=== PATIENT | female | born 1960 | race Caucasian/White ===

== ENCOUNTER → 2017-11-12 10:53 | Outpatient (CLI) | payer BC, SELFPAY ==
--- NOTE | 2017-11-12 | IMM_PTH ---
PATIENT: CARRIE GARVEY LOC: [facility] U#:[id number] AGE/SX: 64/F ROOM: RE11/12/[address]: Dr. Sidra Higgins MD : 1960 BED: DIS: SPEC #: [id number] RECD: 11/13/17 10:24 STATUS: CORNELIO REBahman #: [id number] TRAE: 11/12/17 00:[address]: Sidra Higgins DEPT: IMMUNOHISTOCHEMISTRY RECD BY: Nayla Vega ENTERED: 11/13/17 10:25 SP TYPE: IMMUNO OTHR DR: No Primary Care Phys Tissues: Right breast, NOS Procedures: CALPONIN-1 (add) CK8 (add) E-CAD (add) HER2 TRACEY (add) MI (add) P40 (add) ER (initial) PHYSICIAN & INSTITUTION [place] [id number] SPECIMEN INFORMATION: Tissue Source: Right breast tissue Clinical Info: Microcalcifications UOQ Specimen Number: [id number] #2 CPT code: 07550, 97958 x3, 02042 x3 METHODOLOGY: Deparaffinized sections of prefer/formalin-fixed tissue or PAP/DQ stained slides are incubated with monoclonal/polyclonal antibodies/oligonucleotide probes. Localization is made via biotin free immunoperoxidase method. Appropriate controls are performed and reacted as expected. Results on target cell population are indicated in the following table: RESULTS: ANTIBODY / CLONE RESULT Block 2 E-Cad (ECH-6) positive CK8 (41bplaD21) positive P40 (BC28) positive Calponin-1 (NQ215B) positive MORPHOMETRIC ANALYSIS ER (clone 6F11) 0% MI (clone 16/1E2) 0% Her-2Neu (clone CB11) 3+ (positive) The prognostic test for HER2 is performed on formalin-fixed paraffin embedded tissue. A 3+ (positive) staining pattern is defined as intense, homogeneous, complete, circumferential membranous staining in >10% of contiguous tumor cells. A similar weak (2+) staining pattern is interpreted as equivocal. CHEPE follow-up testing is recommended for all equivocal cases. Positivity/negativity for ER/MI is reported if > or < 1% of the tumor cells are immuno- reactive, respectively. The ASCO/CAP criteria is used for scoring. Reference: Journal of Clinical Oncology, 2013; 31:8518-4227 & 2010; 16:8485-2656. Duration of fixation: 8 Hrs; Sample Adequate: Yes. These assays have not been validated on decalcified tissues. Results should be interpreted with caution given the likelihood of false negativity on decalcified specimens. These tests were developed and their performance characteristics determined by [facility]. They may not have been cleared or approved by the U.S. Food and Drug Administration. The FDA has determined that such clearance or approval is not necessary. INTERPRETATION: Right breast, stereotactic needle core biopsy: Ductal carcinoma in situ, nuclear grade 3. SJ:ammy 11/13/17
--- NOTE | 2017-11-12 11:30 | BRBX_PTH ---
PATIENT: ACRRIE GARVEY LOC: [facility] U#:[id number] AGE/SX: 64/F ROOM: RE11/12/[address]: Dr. Sidra Higgins MD : 1960 BED: DIS: SPEC #: [id number] RECD: 11/12/17 12:27 STATUS: CORNELIO CEDENO #: [id number] TRAE: 11/12/17 11:[address]: Sidra Higgins DEPT: SURGICAL PATHOLOGY RECD BY: Nayla Vega ENTERED: 11/12/17 15:02 SP TYPE: BREAST BX OT DR: No Primary Care Phys Tissues: Right breast, NOS Procedures: Surgery Specimen Level IV HEADER OPERATION: Right breast stereotactic needle core biopsy PRE-OP DIAGNOSIS: Microcalcifications at UOQ TISSUE SUBMITTED: Right breast tissue ISCHEMIC TIME: 1 minute FIXATION TIME: 8 hours MICROSCOPIC DIAGNOSIS Right breast, microcalcifications at upper outer quadrant, stereotactic needle core biopsy: Ductal carcinoma in situ with the following characteristics: Pattern ? comedo and cribriform Nuclear Grade - 3 Necrosis ? present, central (expansive comedo necrosis). Calcifications ? not identified. See comment. KEVIN:ammy 11/13/17 COMMENT Immunohistochemistry ([id number]) supports the above diagnosis. ER/IA/Jgq9hec studies are being performed on sections of tumor and the results from this study will be reported separately ([id number]). MICROSCOPIC DESCRIPTION Slides are reviewed. GROSS DESCRIPTION Received in fixative is one container labeled with the patient's name and designated right breast. The specimen consists of multiple elongated fragments of posey-yellow fibroadipose tissue that in aggregate measure 7.5 x 3 x 0.3 cm. The entire specimen is submitted in three cassettes. / KEVIN:ammy 11/12/17 TC:0 CPT: 06002
--- NOTE | 2017-11-12 16:52 | PCM.OPRPT ---
Report of Operation Date of Procedure: 11/12/17 Pre-Operative Diagnosis: abnormal calcifications of right breast mammograms Post-Operative Diagnosis: same Surgery/Procedure Performed:: right stereotactic breast biopsy Description of Surgical Findings:: multiple areas of calcifications in central upper breast Type of Anesthesia:: Local - 1% xylocaine Specimen's removed: right breast tissue Estimated Blood Loss (mL): < 1 ml Fluids Replaced: none Description of Procedure: After informed consent was given, the patient was brought into the breast biopsy suite. Appropriate time out protocol was followed. She was then placed in the prone position on the stereotactic biopsy table. The patients right breast was then placed in the opening at the head of the table. A windlace machine operator compression mammogram was then obtained in the CC view. The suspicious radiological lesion was then identified. Stereo pictures of the lesion were then taken for XYZ coordinates. The Mammotome biopsy stylus was then positioned where it would be entering into the patients breast. The skin at this site was then cleansed with a surgical skin preparation. The skin and subcutaneous tissues at this site were then infiltrated with 1% xylocaine. A small skin incision was made with an 11 blade scalpel. The biopsy stylus was then positioned into the patients breast at the proper coordinates of depth. Using the Mammotome vacuum-assist device, several core samples of breast tissue were obtained. A specimen mammogram was the obtained and revealed that the calcifications were within the specimen. A hemostatic marker clip was then placed into the biopsy cavity and a windlace machine operator film revealed that it was properly deployed. The patient was then placed in the supine position and pressure was applied to the breast until no active bleeding was noted. Steristrips were applied to reapproximate the skin. A unilateral mammogram in the CC and MLO view were then taken which revealed that the marker clip was in the same area as the previous suspicious lesion. The patient tolerated the procedure well and was discharged from the breast biopsy suite in good condition. - Complications none noted
== END ==
LOC: BIRAD 10:56
PROVIDERS: Visit Provider Surgery
DX: C50.111 Malignant neoplasm of central portion of right female breast (principal); K21.0 Gastro-esophageal reflux disease with esophagitis; E66.9 Obesity, unspecified; F17.210 Nicotine dependence, cigarettes, uncomplicated; Z79.82 Long term (current) use of aspirin; Z79.899 Other long term (current) drug therapy
CPT/HCPCS: 19081; 88305; 88341; 88342; J7050; A4648

== ENCOUNTER 2017-11-28 09:41 | Day surgery (SDC) | payer BC, SELFPAY ==
--- NOTE | 2017-11-28 | BRBX_PTH ---
PATIENT: CARRIE GARVEY [place] [facility] [place][id number] AGE/SX: 57/F ROOM: RE11/28/[address]: Dr. Sidra Higgins MD : 1960 BED: DIS: 11/28/2017 SPEC #: [id number] RECD: 11/28/17 14:08 STATUS: CORNELIO PAO #: [id number] TRAE: 11/28/17 00:[address]: Sidra Higgins DEPT: SURGICAL PATHOLOGY RECD BY: Nayla Vega ENTERED: 11/28/17 14:09 SP TYPE: BREAST BX OTHR DR: Dr. Eric Coughlin DO Tissues: A - Right breast, NOS B - CICATRIX/SCAR Procedures: Surgery Specimen Level IV Surgery Specimen Level V HEADER OPERATION: Right breast ductal carcinoma in situ PRE-OP DIAGNOSIS: Right breast ductal carcinoma in situ TISSUE SUBMITTED: A - Right breast mass sent to mammography and then to lab for FS at 1244, short suture breaux medial border, two short sutures antonio superior border, two long sutures antonio inferior border, B - Biopsy scar right breast MICROSCOPIC DIAGNOSIS A. Right breast, lumpectomy: Ductal carcinoma in situ. See cancer checklist below. B. Right breast, biopsy scar: Consistent with cicatrix. Focal foreign body giant cell reaction to polarizable material. No evidence of malignancy. AM:ammy 12/03/17 COMMENT A. DUCTAL CARCINOMA IN SITU SUMMARY: Specimen - partial breast Procedure - excision with wire-guided localization. Lymph node sampling - no lymph nodes present. Specimen integrity - single intact specimen. Specimen size - 7 x 6.5 x 3 cm Specimen laterality - right breast Size (extent) of DCIS - 7 x 6 x 3 mm Number of blocks with DCIS - 9 Number of blocks examined - 12 Extensive intraductal component - present Histologic type - ductal carcinoma in situ Architectural patterns - papillary and comedo Nuclear grade - Grade 3 (high grade) Necrosis - present Margins - free of carcinoma Distance from closest margins (anterior, posterior and inferior margins) - <1 mm Treatment effect - unknown Lymph nodes - not present Microcalcifications - present in neoplastic tissue. Additional pathologic findings - changes of previous biopsy. Pathologic Staging: pTis(DCIS) Nx Mx The above summary is in compliance with [employer] [place] [employer] (CAP) Cancer Protocols Checklist and [place] [employer] Committee on Cancer (AJCC), Staging Manual, 8th Ed. Reference is made to the patient's right breast, stereotactic needle core biopsy ([id number]) in which grade 3 ductal carcinoma was identified. Hormonal marker study ([id number]) shows ER at 0%, MO at 0% and 3+ positivity for Her-2 by immunohistochemistry was identified. Case has been reviewed in consultation with Dr. Casiano who concurs with the above diagnosis. IDC:SJ MICROSCOPIC DESCRIPTION Slides are reviewed. GROSS DESCRIPTION A - Received fresh for intraoperative consultation labeled with the patient's name is a specimen designated right breast mass. The specimen consists of a piece of fibroadipose tissue with needle localization measuring 7 x 6.5 x 3 cm. The specimen is oriented as follows: short - medial border, two short - superior border, two long - inferior border. The specimen is inked as follows: anterior - yellow, posterior - black, superior - blue, inferior - green, medial - red and lateral - orange. Serial sections reveal a biopsy cavity which is 0.2 cm away from the closest posterior margin. Medical Assisting Instructor sections are submitted in 12 cassettes as follows: 1 - perpendicular medial, lateral and anterior margins, 2 - perpendicular superior and inferior margins, 3-6 - biopsy cavity with closest posterior margin, 7-12 - account representative sections adjacent to and away from the biopsy cavity. Sections will be submitted after additional fixation. / David 12/01/17 B - Received in fixative is one container labeled with the patient's name and designated biopsy scar right breast. The specimen consists of two pieces of posey soft tissue measuring in aggregate 0.6 x 0.5 x 0.2 cm. The entire specimen is submitted in one cassette. / KEVIN:ammy 11/28/17 TC:0 CPT: 68941, 34680
[2017-11-28 10:04] VITALS: BP 128/85; PULSE 81; RESP 16; TEMP 37.2; O2SAT 96; BMI 30.9
--- NOTE | 2017-11-28 10:16 | BI_ITS ---
SURGICAL BREAST SPECIMEN RADIOGRAPH CLINICAL: Document presence of microcalcifications and localizing wire in biopsy specimen. FINDINGS: Specimen shows presence of microcalcifications Pathology is pending and an addendum to the biopsy report will be performed after the final pathologic diagnosis is rendered. Electronically Signed: Dana Aguayo MD at 14:10 EDT Tel , Service support , BI/Breast Biopsy Specimen
[2017-11-28] MEDS: Bupiv/Epi 0.5% Mpf 30 ML Vial (12:15)
--- NOTE | 2017-11-28 13:19 | OP.PN_ITS ---
Immediate Post-Op Note Date of Procedure: 11/28/17 Primary Surgeon/Physician: Sidra Higgins team leader/research psychologist: YOUSIF ESCOBAR, medical student Pre-Operative Diagnosis: right breast ductal carcinoma in situ Post-Operative Diagnosis: same Surgery/Procedure Performed:: right breast lumpectomy via wire localization Description of Surgical Findings:: right breast tissue - upper outer quadrant Estimated Blood Loss: < 10 ml Specimen's removed: right breast tissue Type of Anesthesia:: General ASA Class: ASA2 Mod Systematic Disease - Admit VTE Documentation VTE Present on Admission: Yes VTE Mechan Device Prophylaxis: SCD's
--- NOTE | 2017-11-28 13:20 | OP.PCM_ITS ---
Report of Operation Date of Procedure: 11/28/17 Pre-Operative Diagnosis: right breast ductal carcinoma in situ Post-Operative Diagnosis: same Surgery/Procedure Performed:: right breast lumpectomy via wire localization Description of Surgical Findings:: right breast tissue - upper outer quadrant, specimen mammogram reviewed intraoperatively and marker clip in the specimen, intraop pathology reveals margins are clear parts department supervisor: NOT,DEFINED - Abelino Hensley, medical student Type of Anesthesia:: General Anesthesiologist: Lorena Mcleod Specimen's removed: right breast tissue Estimated Blood Loss (mL): < 10 ml Fluids Replaced: 1000 ml RL Description of Procedure: After informed consent was given, the patient was brought into the Breast Stereotactic Radiology suite. Appropriate time out protocol was followed. She was then placed in the prone position on the [place] stereotactic table. The patient?s right breast was placed in the opening at the head of the table. A qa manager compression mammogram was then obtained in the CC view. The marker clip that was previously placed was identified. Stereo pictures of the lesion were then taken for XYZ coordinates. The Kopans needle was then positioned where it would be entering into the patient?s breast. The skin at this site was then cleansed with a surgical skin preparation. The skin and subcutaneous tissues at this site were then infiltrated with 1% xylocaine. The Kopans needle was then positioned into the patient?s breast at the proper coordinates of depth. A qa manager film was obtained which revealed the wire in proper position. The patient was then placed in the supine position and the wire was taped into place. A unilateral mammogram in the CC and MLO view were then taken for use in the OR. The patient tolerated this portion of the procedure well and was brought to the AC awaiting surgery in the OR. The patient was then brought to the Operating Room and placed on the operating table in the supine position. Appropriate time out protocol was followed. A wire had already been placed in the stereotactic biopsy room in the radiology department as described above. The right breast with the wire in placed was then prepped with a sterile surgical skin preparation and sterile surgical drape s were placed. The skin and subcutaneous tissues at the site of the breast lesion was then infiltrated with 1% xylocaine with epinephrine. A transverse curvilinear skin incision was then made with a 15 blade scalpel and carried down through to the subcutaneous tissues in the upper outer quadrant of the right breast. Hemostasis was controlled with electrocautery. The wire was then palpated out and brought into the wound from outside. The breast tissue surrounding the wire was then carefully palpated out and from the surrounding tissues using electrocautery. The breast tissue, once from the breast, was then forwarded to the radiology department, where a specimen mammogram revealed that the lesion was within the specimen. The breast tissue was then forwarded to pathology for analysis. Pathology review revealed that the closest margin was posterior 2 mm. The wound cavity was carefully examined. No further suspicious tissue was palpated or visualized. Hemostasis was carefully controlled with electrocautery. The subdermal tissues were then approximated with vicryl suture. The incision was then reapproximated close using running monocryl suture. Cavilon and steristrips were then placed to reinforce the skin closure. A sterile dressing was then applied. The patient was then brought to the Recovery Room in stable condition. - Complications none noted - Admit VTE Documentation VTE Present on Admission: Yes VTE Mechan Device Prophylaxis: SCD's
--- NOTE | 2017-11-28 13:22 | PCM.DC.BS ---
Discharge Diet: No Restrictions Discharge Activity: Return to Normal Activity, May not drive while taking narcotic pain medications. Call your doctor if your incision/area has: Continuous Slow Oozing, Foul Smelling Discharge Call your doctor if you observe: Fever of 101 or Higher Additional Dressing/Incision Instructions:: Leave dressings in place. May get wet in shower. Do not soak - no tub baths/swimming Allergies/Adverse Reactions: Allergies Penicillins Allergy (Verified 11/25/17 10:37) Rash chlordiazepoxide [From Librax (with clidinium)] Adverse Reaction (Verified 11/25/17 10:37) Other CONSTIPATION clidinium bromide [From Librax (with clidinium)] Adverse Reaction (Verified 11/25/17 10:37) Other CONSTIPATION Medications to take at Discharge Aspirin [Aspirin EC] 81 mg PO DAILY 11/25/17 Hydrocodone/Acetaminophen [[place] 5-325 Tablet] 1 ea PO Q8H PRN PRN 3 Days #10 tab 11/28/17 The following prescriptions were given: Hydrocodone/Acetaminophen [[place] 5-325 Tablet] 1 ea PO Q8H PRN PRN 3 Days #10 tab PRN Reason: Pain Primary Care Physician: Eric Coughlin DO [Primary Care Provider] - Please Follow Up With: Sidra Higgins MD - call When: to be seen next week, please call for date and time, thank you
[2017-11-28 13:28] VITALS: BP 126/86; BP 128/85; PULSE 90; RESP 16; TEMP 36.9; O2SAT 92
[2017-11-28 13:44] VITALS: BP 126/87; BP 128/85; PULSE 86; RESP 16; O2SAT 91
[2017-11-28 14:00] VITALS: BP 117/82; BP 128/85; PULSE 80; RESP 16; TEMP 36.7; O2SAT 93
[2017-11-28 14:37] VITALS: BP 117/73; BP 128/85; PULSE 79; RESP 16; TEMP 36.6; O2SAT 93
== END 2017-11-28 14:44 | disposition home or self-care (01) ==
LOC: SDC 09:43 → AC 09:45
PROVIDERS: Family Provider Student in an Organized Health Care Education/Training Program; PCP Student in an Organized Health Care Education/Training Program; Referring Provider Surgery; Visit Provider Surgery
PROC: (CPT 19301; principal; 2017-11-28 11:30)
DX: D05.11 Intraductal carcinoma in situ of right breast (principal); K21.9 Gastro-esophageal reflux disease without esophagitis; K58.9 Irritable bowel syndrome, unspecified; J45.909 Unspecified asthma, uncomplicated; R32 Unspecified urinary incontinence; E66.9 Obesity, unspecified; Z68.30 Body mass index [BMI] 30.0-30.9, adult; F17.210 Nicotine dependence, cigarettes, uncomplicated; Z79.82 Long term (current) use of aspirin; Z78.0 Asymptomatic menopausal state; Z87.11 Personal history of peptic ulcer disease
CPT/HCPCS: 00400; 19301; 19281; 76098; 88304; 88305; 88307; J7120; J2405

== ENCOUNTER 2018-06-08 11:15 | Day surgery (SDC) | payer BC, SELFPAY ==
[2018-06-08] VITALS (8 sets, daily range): BP systolic 111–132; BP diastolic 72–88; PULSE 76–87; RESP 16; TEMP 36.2–36.7; O2SAT 93–100; BMI 34.2
--- NOTE | 2018-06-08 | COLBX_PTH ---
PATIENT: CARRIE GARVEY LOC: [facility] U#:[id number] AGE/SX: 57/F ROOM: RE06/08/[address]: Dr. Sidra Higgins MD : 1960 BED: DIS: 06/08/2018 SPEC #: [id number] RECD: 06/08/18 15:41 STATUS: CORNELIO RE #: [id number] TRAE: 06/08/18 00:[address]: Sidra Higgins DEPT: SURGICAL PATHOLOGY RECD BY: Bradly Mclean ENTERED: 06/09/18 14:01 SP TYPE: COLON BX OTHR DR: Dr. Eric Coughlin DO Tissues: A - Duodenum, NOS B - Gastric mucous membrane C - Gastric mucous membrane Procedures: Special Stain Group II Surgery Specimen Level IV Alcian Blue/PAS (control) HEADER OPERATION[place] [place] DIAGNOSIS: TISSUE SUBMITTED: A - Second portion of duodenum biopsy, B - Antrum biopsy for histo and H. pylori, C - GE junction biopsy MICROSCOPIC DIAGNOSIS A. Second portion of duodenum, biopsy: Fragments of small intestinal mucosa, no pathologic diagnosis. B. Antrum, biopsy: Mild gastritis. See microscopic description and comment. C. GE junction, biopsy: Fragments of gastroesophageal mucosa with chronic inflammation. Intestinal metaplasia (goblet cell metaplasia) is not identified. See comment. SJ:ammy 06/10/18 COMMENT B. The results of immunohistochemistry for Helicobacter pylori will be reported separately ([id number]). C. Alcian blue/PAS stain with matched control is used in the evaluation of the specimen. MICROSCOPIC DESCRIPTION Slides are reviewed. B. The specimen shows fragments of gastric mucosa with chronic inflammatory cell infiltrates in the lamina propria consisting of lymphocytes and plasma cells, consistent with mild chronic gastritis. GROSS DESCRIPTION A - Received in fixative is one container labeled with the patient's name and designated second portion of duodenum. The specimen consists of multiple irregular fragments of light posey soft tissue that in aggregate measure 1 x 0.2 x 0.1 cm. The specimen is totally submitted in one cassette. B - Received in fixative is one container labeled with the patient's name and designated antrum biopsy. The specimen consists of two irregular fragments of light posey soft tissue that in aggregate measure 0.5 x 0.3 x 0.1 cm. The specimen is totally submitted in one cassette. C - Received in fixative is one container labeled with the patient's name and designated GE junction biopsy. The specimen consists of multiple two irregular fragments of light posey soft tissue that in aggregate measure 0.3 x 0.2 x 0.1 cm. The specimen is totally submitted in one cassette. / SJ:rg 06/09/18 TC:5 CPT: 53014 x3, 01841
--- NOTE | 2018-06-08 12:45 | IMM_PTH ---
PATIENT: CARRIE GARVEY LOC: [facility] U#:[id number] AGE/SX: 57/F ROOM: RE06/08/[address]: Dr. Sidra Higgins MD : 1960 BED: DIS: 06/08/2018 SPEC #: [id number] RECD: 06/09/18 15:12 STATUS: CORNELIO REQ #: [id number] TRAE: 06/08/18 12:[address]: Sidra Higgins DEPT: IMMUNOHISTOCHEMISTRY RECD BY: Nayla Vega ENTERED: 06/09/18 15:13 SP TYPE: IMMUNO OTHR DR: Dr. Eric Coughlin, Tissues: B - Stomach, NOS Procedures: H Pylori (initial) PHYSICIAN & INSTITUTION [place] [id number] SPECIMEN INFORMATION: Tissue Source: B - Antrum biopsy Clinical Info: Screening Specimen Number: [id number] CPT code: 78281 METHODOLOGY: Deparaffinized sections of prefer/formalin-fixed tissue or PAP/DQ stained slides are incubated with monoclonal/polyclonal antibodies/oligonucleotide probes. Localization is made via biotin free immunoperoxidase method. Appropriate controls are performed and reacted as expected. Results on target cell population are indicated in the following table: RESULTS: ANTIBODY / CLONE RESULT Block B H Pylori (polyclonal) negative These tests were developed and their performance characteristics determined by [facility]. They may not have been cleared or approved by the U.S. Food and Drug Administration. The FDA has determined that such clearance or approval is not necessary. INTERPRETATION: B. Antrum, biopsy: Negative for Helicobacter pylori organisms. SJ:ammy 06/10/18
--- NOTE | 2018-06-08 13:56 | HP.PCM_ITS ---
History and Physical Date of Admission: 06/08/18 HISTORY AND PHYSICAL ? Christel Madden 1960 ? ? REFERRING PHYSICIAN: Mckenzie López MD ? CHIEF COMPLAINT: discuss EGD ? HPI: The patient is a 57 year old female presents for consideration of upper endoscopy. 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 Also findings of gastritis for which H pylori was negative. Denies hematemesis. Denies swallowing problems Mother had colon cancer in her 50s and at age 60, due for colonosocpy in 2020 ? ? PAST MEDICAL HISTORY ? Acute peptic ulcer, unspecified site, without mention of hemorrhage and perforation ? ? Diaphragmatic hernia without mention of obstruction or gangrene ? ? Hiatal hernia ? Esophageal reflux ? ? Gastroesophageal reflux ? Esophagitis ? ? Irregular menses ? ? Non morbid obesity 09/05/2015 ? Ovarian cyst 04/19/2009 ? Tobacco abuse ? ? 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 Urinary incontinence ? ? PAST SURGICAL HISTORY ? BREAST LUMPECTOMY HX Right 11/28/2017 ? COLONOSCOP W/ OR W/O [facility] SPEC ? 06/20/03 ? Colonoscopy ? COLONOSCOP W/ OR W/O [facility] SPEC ? 05/17/2009 ? Colonoscopy ? COLONOSCOP W/ OR W/O [facility] SPEC ? 12/20/11 ? normal colonoscopy - 5 year follow up ? COLONOSCOP W/ OR W/O [facility] SPEC ? 09/06/2015 ? Colonoscopy ? EGD W/O OR W/BRUSH/WASH ? 05/17/2009 ? EGD ? EGD W/O OR W/BRUSH/WASH ? 09/06/2015 ? [facility] ? 11/12/2017 ? TYP MEMBR REP W OR W/O PATCH ? 2005 ? Tympanoplasty ? ? Current Outpatient Medications: Aspirin 81 mg tab Take 1 tablet by mouth once daily. Take with food. ? ? ALLERGIES: Librax (With Clinidium) [Chlordiazepoxide-Clidinium]; Penicillins ? PERSONAL HISTORY: Social History Socioeconomic History Marital status: Spouse name: Jian Number of children: 4 Years of education: Not on file Highest education level: Not on file Social Needs Financial resource strain: Not on file Food insecurity - worry: Not on file Food insecurity - inability: Not on file Transportation needs - medical: Not on file Transportation needs - non-medical: Not on file Occupational History Occupation: LABOR Employer: [employer] Tobacco Use Smoking status: Current Every Day Smoker Packs/day: 1.50 Years: 35.00 Pack years: 52.5 Types: Cigarettes Smokeless tobacco: Never Used Substance and Sexual Activity Alcohol use: No Drug use: No Sexual activity: Yes Partners: Male control/protection: Vasectomy Other Topics Concerns: Not on file Social History Narrative Not on file ? FAMILY HISTORY ? Colon Cancer Mother ? ? Cancer Mother ? ? OVARIAN ? Cancer Father ? ? throat ? Hypertension Maternal Grandmother ? ? Diabetes Maternal Grandmother ? ? Hypertension Paternal Grandmother ? ? Colon Cancer Paternal Grandmother ? ? Breast Cancer Paternal Grandmother ? ? Heart Paternal Grandfather ? ? other (Fibroids) Daughter ? ? ? REVIEW OF SYSTEMS: ?General:???The patient denies fatigue, denies weight loss, denies weight gain, denies feeling hot, and NOTES feelings of cold. ?Eyes: ?The patient denies glaucoma, denies eye injury/surgery, wears glasses or contacts. ?Ear/Nose/Throat: ?The patient denies allergies, denies hayfever, denies ear infections, and denies bloody noses. ?Cardiovascular: ?The patient denies chest pain, denies heart disease, denies high blood pressure,denies cardiac stent, denies prior heart attack, denies irregular heart beat, denies high cholesterol, ?denies poor circulation, denies heart failure, other cardiac issues, NOTES claudication, denies cold feet, denies peripheral arterial stent. ?Respiratory: ?The patient denies tuberculosis, denies pneumonia, denies frequent cough, denies pulmonary embolism, denies shortness of breath, and denies coughing up blood. ?Gastrointestinal: mother of colon cancer at age 60 patient's last colonoscopy was 3-4 years ago?The patient denies difficulty swallowing, NOTES acid reflux, denies ulcers, denies vomiting, denies jaundice/hepatitis, denies gallbladder problems, denies black or tarry stools, denies hemorrhoids, denies bleeding from rectum, denies diverticulitis, denies constipation, denies diarrhea, denies loss of stool control, and denies hernias. ?Kidney/Bladder: ?The patient denies kidney stones, denies urine infections, and denies bloody urine. ?Skin: ?The patient denies a history of skin cancer, denies bleeding/changing moles, and denies a history of skin rash. ?Neurologic: ?The patient denies a history of epilepsy/convulsions, denies headaches, denies head/spinal injuries, and denies stroke/TIA. ?Psychiatric: ?The patient denies psychiatric medications, denies depression, and denies voices, denies substance abuse. ?Endocrine: ?The patient denies thyroid disorders, denies diabetes, and denies hormonal problems. ?Hematologic: ?The patient denies a history of bruising, denies bleeding, and denies anemia, denies blood clots. ?Infections: ?The patient denies a history of measles and mumps, denies rheumatic fever, and denies sexually transmitted diseases. ?Musculoskeletal: ?The patient denies back pain/injury, NOTES back problems, denies sciatica, denies knee/foot trouble, NOTES arthritis, or denies gout. ?Obstetrical: menarche onset at age 11/12, , first at age 15, denies breast feeding, BCP starting at age 17 for a few years then used IUD,?last menstrual period 10/08/2012 ? PHYSICAL EXAMINATION: General: The patient is 57 year old female, well nourished, well hydrated in no acute distress. The patient is oriented to time, place, and person. VITALS: Blood pressure 132/64, pulse 88, weight 88.9 kg (196 lb), last menstrual period 10/08/2012. Body mass index is 33.12 kg/m?. Head ? Normocephalic. EOM intact with sclera clear and no icterus noted. Mouth with mucus membranes moist. Neck - supple with no jugular venous distention noted. Trachea is midline. No carotid bruits noted. No thyroid enlargement or thyroid nodules detected. No masses noted. Chest/breast ? no asymmetry of breasts noted, no suspicious skin lesions noted well healed incisional scar of lateral aspect of right breast, no nipple d ischarge and both nipples everted, no suspicious lesions palpated, palpation of the breast tissue reveals no tenderness, pain is reproduced with pressure applied to thoracic wall - rib cage and pectoralis mscle Lungs ? clear to auscultation. Normal breath sounds. No rales/rhonchi/wheezing noted. No labored breathing noted, such as retractions. Heart ? normal S1 and S2 auscultated. No rubs/clicks/murmurs noted. Regular rate. Abdomen ? soft and benign. Normal bowel sounds. No abdominal bruits noted. No distention or tympany noted. Extremities ? no calf tenderness noted. No pitting edema noted. Skin ? normal skin integrity. Lymph ? no cervical adenopathy detected, no supraclavicular adenopathy detected, no axillary adenopathy detected Neurological ??gait normal, no focal deficits noted. Psych ? calm and appropriate ? IMPRESSION: history of squamous papilloma of esophagus ? PLAN: I have discussed the above with the patient. I have offered evaluation with EGD, possible biopsies. I have explained procedure to patient, including but not limited to: infection, bleeding, perforation of the GI tract, etc. - she understands and agrees to proceed. Will schedule for EGD, possible biopsies I have answered all questions to the patient?s satisfaction and the patient has no further questions. .? ? I have confirmed and edited as necessary, the PFSH and ROS obtained by others. ?
--- NOTE | 2018-06-08 14:11 | OP.ENDO_ITS ---
06/08/2018 Eric Coughlin [address] [id number] Re : Upper GI endoscopy procedure for Katt Maryanne Dear Dr. Coughlin This procedure was performed on Friday, June 08, 2018. My impressions and recommendations are as follows: Impressions : - Z-line irregular. Biopsied. - Gastritis. Biopsied. - Normal first portion of the duodenum and second portion of the duodenum. Biopsied. Recommendations : - Await pathology results. - My office will telephone with pathology results in 1-2 weeks - Continue present medications. My findings are described in the full procedure note, which is enclosed. If I can be of further assistance, please feel free to contact me at Doctor phone number(s): , Work: . Sincerely, MD Sidra Cunha MD 06/08/2018 2:11:04 PM This report has been signed electronically.
== END 2018-06-08 14:44 | disposition home or self-care (01) ==
LOC: EN 11:20 → AC 11:21
PROVIDERS: Family Provider Student in an Organized Health Care Education/Training Program; PCP Student in an Organized Health Care Education/Training Program; Referring Provider Student in an Organized Health Care Education/Training Program; Visit Provider Surgery
PROC: 0DJ08ZZ Inspection of Upper Intestinal Tract, Via Natural or Artificial Opening Endoscopic (ICD-10-PCS; CPT 43235; principal; 2018-06-08 12:40)
DX: K29.70 Gastritis, unspecified, without bleeding (principal); K44.9 Diaphragmatic hernia without obstruction or gangrene; K58.9 Irritable bowel syndrome, unspecified; J45.909 Unspecified asthma, uncomplicated; K21.9 Gastro-esophageal reflux disease without esophagitis; E66.9 Obesity, unspecified; F17.210 Nicotine dependence, cigarettes, uncomplicated; Z79.82 Long term (current) use of aspirin; Z78.0 Asymptomatic menopausal state; Z87.11 Personal history of peptic ulcer disease; Z86.018 Personal history of other benign neoplasm; Z85.3 Personal history of malignant neoplasm of breast; Z92.3 Personal history of irradiation
CPT/HCPCS: 43239; 88305; 88313; 88342; J7120; J2405

== ENCOUNTER 2020-09-19 09:08 | Day surgery (SDC) | payer BC, SELFPAY ==
[2018-06-08 11:32] VITALS: BMI 34.2
--- NOTE | 2020-09-15 12:34 | RAD_ITS ---
STUDY: X-RAY CHEST REASON FOR EXAM: Female, 60 years old. PREOP -- HX OF RADIATION TECHNIQUE: PA and lateral views of the chest. COMPARISON: None. FINDINGS: Hyperinflation. Decreased bronchovascular markings in the upper lobes suggestive of emphysematous change. There is no demonstrated pleural abnormality. Normal size heart. Normal mediastinum and katarzyna. Normal visualized pulmonary arteries. Normal visualized aortic arch and descending thoracic aorta. There are degenerative changes of the visualized thoracic spine. Normal visualized ribs, clavicles, and shoulders. There is no demonstrated abnormality of the visualized soft tissue structures of the upper abdomen. RAD/Chest PA and Lateral IMPRESSION: Hyperinflation. Findings suggestive of emphysematous changes in the upper lobes. Electronically Signed: Ole Harper MD at 15:00 EDT , Service support ,
--- NOTE | 2020-09-15 12:34 | EKG12_ITS ---
Test Reason : PREOP Blood Pressure : / mmHG Vent. Rate : 079 BPM Atrial Rate : 079 BPM P-R Int : 148 ms QRS Dur : 082 ms QT Int : 358 ms P-R-T Axes : 066 049 048 degrees QTc Int : 410 ms Normal sinus rhythm Septal infarct , age undetermined , cannot be excluded Abnormal ECG Confirmed by MIGUEL CHANDLER, MICK ([id number]), graphics editor AWAIS PETERSON ([id number]) on 09/18/2020 1:13:25 PM Referred By: Sidra Higgins Confirmed By:MICK RIVERA MD
[2020-09-15 13:22] LABS: Hemoglobin 14.1 g/dL (12.0-15.0); Mean Corp Hgb Conc 32.8 g/dL (32-36); Mean Corpuscular Hgb 30.7 pg (27.0-32.0); Mean Corpuscular Volume 93.7 fL (81-99); Mean Platelet Vol. 8.7 fl (6.2-12.0); Platelet Count 284 K/mm3 (150-450); RBC Distribution Width CV 13.1 % (11.6-14.6); RBC Distribution Width SD 45.1 fl (35.1-43.9); Red Blood Count 4.59 M/mm3 (4.2-5.4); White Blood Count 6.8 K/mm3 (4.4-11.0)
--- NOTE | 2020-09-18 20:20 | PCM.HP.BLA ---
History and Physical Date of Admission: 09/19/20 Christel Madden 1960 CHIEF COMPLAINT: abdominal pain/cholelithiasis HPI: The patient is a 60 year old female who presents with RUQ abdominal pain for the past two months. She describes the pain as an intermittent stabbing pain. She has accompanying symptoms of nausea, but denies emesis. She also complains of abdominal bloating. Also notes constipation She denies fevers/chills She notes no gallbladder disease in the family. An ultrasound of the RUQ abdominal pain reveals gallbladder with sludge and possible gallbladder polyp Admits to TOB use. US 08/17/2020 Gallbladder sludge, echogenic focus along the gallbladder wall likely representing gallbladder polyp/cholesterol polyp 5mm PAST MEDICAL HISTORY ? Acute peptic ulcer, unspecified site, without mention of hemorrhage and perforation ? Diaphragmatic hernia without mention of obstruction or gangrene Hiatal hernia ? Esophageal reflux Gastroesophageal reflux ? Esophagitis ? Irregular menses ? Non morbid obesity 09/05/2015 ? Ovarian cyst 04/19/2009 ? Ovarian cyst ? Tobacco abuse ? 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 Urinary incontinence PAST SURGICAL HISTORY ? BREAST LUMPECTOMY HX Right 11/28/2017 ? COLONOSCOP W/ OR W/O [facility] SPEC 06/20/03 Colonoscopy ? COLONOSCOP W/ OR W/O [facility] SPEC 05/17/2009 Colonoscopy ? COLONOSCOP W/ OR W/O [facility] SPEC 12/20/11 normal colonoscopy - 5 year follow up ? COLONOSCOP W/ OR W/O [facility] SPEC 09/06/2015 Colonoscopy ? EGD BIOPSY SINGLE/MULTIPLE 06/08/2018 Dr. Higgins ? EGD W/O OR W/BRUSH/WASH 05/17/2009 EGD ? EGD W/O OR W/BRUSH/WASH 09/06/2015 EGD ? [facility] GUIDE FOR BREAST BX 11/12/2017 ? TYP MEMBR REP W OR W/O PATCH 2006 Tympanoplasty Current Outpatient Medications ? cholecalciferol, Vitamin D3, (VITAMIN D3) 1,250 mcg (50,000 unit) cap capsule Take 1 capsule by mouth one time a week. ? terbinafine HCl (LAMISIL) 250 mg tablet Take 1 tablet by mouth once daily. ? nystatin (MYCOSTATIN) cream Apply 1 application to affected area twice daily. ? Aspirin 81 mg tab Take 1 tablet by mouth once daily. Take with food. ALLERGIES: Librax (With Clinidium) [Chlordiazepoxide-Clidinium] and Penicillins PERSONAL HISTORY: ? Smoking status: Current Every Day Smoker Packs/day: 1.00 Years: 44.00 Pack years: 44.00 Types: Cigarettes ? Smokeless tobacco: Never Used Vaping Use ? Vaping Use: Never used Substance Use Topics ? Alcohol use: No ? Drug use: No REVIEW OF SYSTEMS: General: Complains of fatigue, denies weight loss, NOTES weight gain, denies feeling hot, and denies feelings of cold. Eyes: The patient denies glaucoma, denies eye injury/surgery, wears glasses or contacts. Ear/Nose/Throat: The patient NOTES allergies, denies hayfever, denies ear infections, and denies bloody noses. Cardiovascular: The patient denies chest pain, denies heart disease, denies high blood pressure,denies cardiac stent, denies prior heart attack, denies irregular heart beat, denies high cholesterol, NOTES poor circulation, denies heart failure, other cardiac issues, denies claudication, NOTES cold feet, denies peripheral arterial stent. Respiratory: The patient denies tuberculosis, denies pneumonia, denies frequent cough, denies pulmonary embolism, denies shortness of breath, and denies coughing up blood. Gastrointestinal: see HPI, denies blood in stools, denies melena, NOTES acid reflux, NOTES constipation, denies diarrhea, denies loss of stool control, and denies hernias. Kidney/Bladder: The patient denies kidney stones, denies urine infections, and denies bloody urine. Skin: The patient denies a history of skin cancer, denies bleeding/changing moles, and denies a history of skin rash. Neurologic: The patient denies a history of epilepsy/convulsions, denies headaches, denies head/spinal injuries, and denies stroke/TIA. Psychiatric: The patient denies psychiatric medications, denies depression, and denies voices, denies substance abuse. Endocrine: The patient denies thyroid disorders, denies diabetes, and denies hormonal problems. Hematologic: The patient denies a history of bruising, denies bleeding, and denies anemia, denies blood clots. Infections: The patient denies a history of measles and mumps, denies rheumatic fever, and denies sexually transmitted diseases. Musculoskeletal: The patient denies back pain/injury, denies back problems, denies sciatica, NOTES knee/foot trouble, denies arthritis, or denies gout. PHYSICAL EXAMINATION: General: The patient is 60 year old female, well nourished, well hydrated in no acute distress. The patient is oriented to time, place, and person. VITALS: Pulse 96, temperature 36.7 ?C (98 ?F), height 162.6 cm (5' 4), weight 89.7 kg (197 lb 12.8 oz), SpO2 97 %. Body mass index is 33.95 kg/m?. Head ? Normocephalic. EOM intact with sclera clear and no icterus noted. Neck - supple with no jugular venous distention noted. Trachea is midline. Lungs ? clear to auscultation. Normal breath sounds. No rales/rhonchi/wheezing noted. No labored breathing noted, such as retractions. No cough heard. Heart ? normal S1 and S2 auscultated. No rubs/clicks/murmurs noted. Regular rate. Abdomen ? soft and benign. Normal bowel sounds. Extremities ? no calf tenderness noted. No pitting edema noted. Skin ? normal skin integrity. Neurological ? gait normal, no focal deficits noted. Psych ? calm and appropriate RADIOLOGIC STUDIES: As Noted IMPRESSION: RUQ abdominal pain, sludge in gallbladder by US PLAN: I have discussed the above with the patient. I have offered laparoscopic cholecystectomy, possible cholangiograms I have explained the procedure to the patient. I have counseled the patient as to the risks of the procedure, including but not limited to: infection, bleeding, injury to any blood vessels/nerves, scar tissue, injury to any intrabdominal organs, injury to bowel/bladder, injury to the common bile duct/biliary tree, bile leakage, intraabdominal abscess/bleeding, hernias at incisional sites, non resolution of symptoms, wound infections, complications of anesthesia, etc. ? the patient understands. She wishes to proceed. I have answered all questions to the patient?s satisfaction and the patient has no further questions. Sidra Higgins MD
[2020-09-19] VITALS (7 sets, daily range): BP systolic 110–133; BP diastolic 70–79; PULSE 54–90; RESP 16–18; TEMP 36–36.4; O2SAT 96–99; BMI 33.5
[2020-09-19] MEDS: Lactated Ringers 1,000 ML 75 ML IV (09:52)
--- NOTE | 2020-09-19 11:00 | GALL_PTH ---
PATIENT: CARRIE GARVEY LOC: [facility] [place] U#:[id number] AGE/SX: 60/F ROOM: RE09/19/[address]: Dr. Sidra Higgins MD : 1960 BED: DIS: 09/19/2020 SPEC #: [id number] RECD: 09/19/20 14:34 STATUS: CORNELIO CEDENO #: [id number] TRAE: 09/19/20 11:[address]: Sidra Higgins DEPT: SURGICAL PATHOLOGY RECD BY: Robina Chu ENTERED: 09/20/20 08:41 SP TYPE: EILEEN LONG DR: Dr. Eric Coughlin DO Tissues: Gallbladder, NOS Procedures: Surgery Specimen Level III HEADER OPERATION: Laparoscopic cholecystectomy with IOC PRE-OP DIAGNOSIS: RUQ abdominal pain, sludge in gallbladder by US TISSUE SUBMITTED: Gallbladder MICROSCOPIC DIAGNOSIS Gallbladder, cholecystectomy: Mild chronic cholecystitis. No stones are identified in the container or in the gallbladder. SJ:ammy 09/21/2020 MICROSCOPIC DESCRIPTION Slides are reviewed. GROSS DESCRIPTION Received is one container labeled with the patient's name and designated gallbladder. The specimen consists of a gallbladder measuring 6 cm in length and up to 3 cm in diameter. The external surface is pink-posey, smooth and glistening for the most part. Focally it is granular, hemorrhagic and contains cautery artifact. The gallbladder contains green-yellow mucoid bile. No stones are identified in the container or in the gallbladder. The mucosa is bile-stained and without any mass lesions. The gallbladder wall measures up to 0.3 cm in thickness. Piledriver Carpenter sections from the gallbladder and the cystic duct are submitted in one cassette. / SJ:ammy 09/20/20 TC:[facility]: [id number]
--- NOTE | 2020-09-19 12:55 | RAD_ITS ---
STUDY: INTRAOPERATIVE CHOLANGIOGRAM. REASON FOR EXAM: Female, 60 years old. PAIN FLUOROSCOPY TIME (if supplied): ( 7.6 seconds ) minutes/seconds. One image was submitted. TECHNIQUE: Intraoperative glandular was performed by the surgeon. Imaging was submitted. COMPARISON: None. FINDINGS: The visualized intrahepatic biliary ducts are unremarkable. The common bile duct is unremarkable. No intraluminal filling defect is seen. There is free flow of contrast into the duodenum. RAD/Cholangiogram/ O R,Initial IMPRESSION: Unremarkable intraoperative cholangiogram. Electronically Signed: Ole Harper MD at 20:14 EDT , Service support ,
[2020-09-19] MEDS: Lidocaine 1% /Epi 1:100 (50ml) 50 ML VIAL (13:00)
--- NOTE | 2020-09-19 13:25 | PCM.OPRPT ---
Report of Operation Date of Procedure: 09/19/20 Pre-Operative Diagnosis: cholelithiasis, RUQ abdominal pain Post-Operative Diagnosis: same Surgery/Procedure Performed:: laparoscopic cholecystectomy with cholangiograms Description of Surgical Findings:: normal cholangiograms, cholecystitis - chronic Surgeon: Sidra Higgins addictions counselor assistant: Garrett Gresham Type of Anesthesia: General Anesthesiologist: Richi Nelson Specimen's removed: gallbladder and contents Drains: none Estimated Blood Loss (mL): < 10 ml Fluids Replaced: 1000 ml RL Description of Procedure: After informed consent was given, the patient was brought to the Operating Room. Appropriate time out protocol was followed. The patient was placed in the supine position. The patient was then placed under general endotracheal anesthesia by the anesthesia provider. The abdomen was then prepped with a sterile surgical skin preparation and sterile surgical drapes were placed. The infraumbilical skin fold was grasped with penetrating clamps and the skin and subcutaneous tissues were infiltrated with local anesthetic with epinephrine. A skin incision was then made with a 15 blade scalpel. The anterior abdominal wall was elevated and a Veress needle was carefully inserted into the intraabdominal cavity. It was checked to be in the proper position with a normal saline drop test. A CO2 pneumoperitoneum was then created. Once this was achieved, then the Veress needle was removed and an 11mm trocar was placed in its stead. A 10mm laparoscope was then inserted into the trocar and careful attention was directed to the intraabdominal contents. There was no evidence of injury to any intraabdominal organs from insertion of the Veress needle or the trocar. Under direct visualization, a 5mm subxiphoid trocar and two lateral 5mm right subcostal trocars were placed. The skin and subcutaneous tissues at these sites were infiltrated with local anesthetic with epinephrine prior to placement of these trocars. Attention was then directed to the right upper quadrant of the abdomen. There were omental adhesions to the free surface of the gallbladder that were taken down by blunt and sharp dissection. Graspers were placed in the lateral trocars to grasp the distal aspect of the gallbladder and direct it cephalad and to grasp the gallbladder at Gandhi?s pouch and direct it laterally. Dissection then began on the proximal gallbladder continuing down to the area of the triangle of Calot to bluntly dissect out the cystic duct. The neck of the gallbladder was identified and blunt dissection continued to dissect out a segment of the cystic duct. A clip was then placed on the neck of the gallbladder. A small ductotomy was then made. A Ranfac catheter was brought in through a separate skin incision and placed into the cystic duct. An intraoperative cholangiogram was performed under fluoroscopy. The xray revealed no lesions in the common bile duct, arborization of the biliary tree, and good flow into the duodenum. The Ranfac catheter was then removed and two clips were placed proximal to the ductotomy and the cystic duct was then transected. The cystic artery was visualized and bluntly isolated and then two clips were placed proximally and one clip distally and then it was transected between the proximal and distal clips. The gallbladder was then from the liver bed using electrocautery. Once from the liver bed, it was placed in an Endobag. It was brought out via the rimma-umbilical port. It was then forwarded to pathology for analysis. The liver bed was carefully examined. There was no evidence of bile leakage or bleeding. The cystic duct stump and cystic artery stump had their clips intact and there was no evidence of bile leakage or bleeding. The remainder of the abdomen was grossly normal. The CO2 was released and all trocars removed intact. The periumbilical fascia was approximated with a [id number] 0 vicryl suture. All skin incision were closed with 4-0 monocryl in a subdermal fashion. Cavilol and Steristrips were used to reinforce the skin closure. Sterile dressings were applied to all wounds. Sponge, needle and instrument count was verified and correct at time of skin closure. The patient was extubated and brought to the Recovery Room in stable condition. Complications none noted Admit VTE Documentation VTE Present on Admission: Yes VTE Mechan Device Prophylaxis: SCD's
--- NOTE | 2020-09-19 14:02 | EX.PCM.DISCH ---
Discharge Instructions Follow Up Care Test Results: Test results from this visit will be discussed in further detail at your follow-up appointment, if applicable. Discharge Plan Admission Attending Provider: Sidra Higgins Primary Care Provider: Eric Coughlin Instructions Additional Instructions / Restrictions: Recommended pain control regimen - May take 600 mg ibuprofen (Motrin) and then in 3-4 hours, may take 650 mg acetaminophen (Tylenol), then in 3-4 hours may take 600 mg ibuprofen, then in 3-4 hours may take 650 mg acetaminophen and so on for 2-3 days May take narcotic pain medication for pain that is not controlled by above and at night for comfort through the night Leave dressings in place May shower, do not scrub in the areas of the dressings as they may unravel. If they become overly soiled you may remove them but leave incision site open to air. Do not soak - no tub baths/swimming Ice applied to areas of discomfort may help No lifting/pushing/pulling greater than 20 pounds for two weeks Regular diet as tolerated, drink plenty of fluids. Avoid carbonated beverages for a few days as this will cause abdominal bloating and thus discomfort after our surgery. Please call my office for an appointment to see me in 1-2 weeks. Office number is If any questions, please call my office at and ask the refinery operator helper cracking unit for the general surgery nurses desk Discharge Orders/Prescriptions Prescriptions: New hydrocodone-acetaminophen 5-325 mg tablet 1 tab PO Q8H 5 Days Qty: 15 RF: 0 No Action aspirin 81 MG tablet,delayed release (DR/EC) 81 mg PO DAILY RF: 0 terbinafine HCl 250 mg Tablet 250 mg PO QHS RF: 0 cholecalciferol (vitamin D3) [Vitamin D3] 125 mcg (5,000 unit) Tablet 50,000 unit PO QWEEK RF: 0 Referrals / Follow Up: Eric Coughlin DO [Primary Care Provider] - Disposition Disposition (needs filled in before D/C Order can be placed): Home, Self Care
[2020-09-19] MEDS: Ibuprofen 200 MG Tablet 600 MG PO (15:35)
== END 2020-09-19 16:04 | disposition home or self-care (01) ==
LOC: SDC 09:10 → AC 09:11
PROVIDERS: Anesthesiology; PCP Student in an Organized Health Care Education/Training Program; Referring Provider Surgery; Visit Provider Surgery
PROC: (CPT 47610; principal; 2020-09-19 10:40)
DX: K80.10 Calculus of gallbladder with chronic cholecystitis without obstruction (principal); Z20.822 Contact with and (suspected) exposure to COVID-19; J45.909 Unspecified asthma, uncomplicated; M19.90 Unspecified osteoarthritis, unspecified site; K21.9 Gastro-esophageal reflux disease without esophagitis; F17.210 Nicotine dependence, cigarettes, uncomplicated; E66.9 Obesity, unspecified; Z68.33 Body mass index [BMI] 33.0-33.9, adult; Z79.82 Long term (current) use of aspirin; Z79.899 Other long term (current) drug therapy; Z92.3 Personal history of irradiation; Z85.3 Personal history of malignant neoplasm of breast; Z86.718 Personal history of other venous thrombosis and embolism; Z87.11 Personal history of peptic ulcer disease
CPT/HCPCS: 00790; 47563; 36415; 71046; 74300; 76000; 85027; 87426; 88304; 93005; C9803; J7120; J2405

== ENCOUNTER → 2023-09-24 | Outpatient (CLI) | payer OTHER, SELFPAY ==
--- NOTE | 2023-09-24 | LES_PTH ---
PATIENT: CARRIE GARVEY LOC: [facility] U#:[id number] AGE/SX: 63/F ROOM: RE09/24/[address]: Dr. Farooq Wong MD : 1960 BED: DIS: 09/24/2023 SPEC #: [id number] RECD: 09/24/23 15:30 STATUS: CORNELIO PAO #: [id number] TRAE: 09/24/23 00:[address]: Farooq Wong DEPT: SURGICAL PATHOLOGY RECD BY: Chandler Beltre ENTERED: 09/24/23 15:30 SP TYPE: Lesion OTHR DR: Dr. Eric Coughlin, Tissues: Skin of neck, NOS Procedures: Surgery Specimen Level IV HEADER OPERATION: Excision of neck mass PRE-OP DIAGNOSIS: Neck mass TISSUE SUBMITTED: Neck mass MICROSCOPIC DIAGNOSIS Neck mass, excision: Consistent with verrucous keratosis with moderate to marked chronic inflammation, granuloma formation and foreign body giant cell reaction. Solar elastosis. Focal dermal fibrosis consistent with scar. See comment. /mr 09/25/2023 COMMENT Special stains for acid fast bacilli and fungi are negative for organisms; matched controls are appropriate. Case has been reviewed in consultation with Dr. Brand who concurs with the above diagnosis. IDC:AM MICROSCOPIC DESCRIPTION Slides are reviewed. GROSS DESCRIPTION Received in fixative is one container labeled with the patient's name and designated Neck mass. The specimen consists of an indurated fragment of yellow-pink soft tissue measuring 1.5 x 0.5 x 0.2cm. The specimen is submitted in its entirety in one cassette. JI/ 09/24/2023 TC:5 CPT:79963,18691f8
== END | disposition home or self-care (01) ==
LOC: LABSPEC 15:25
PROVIDERS: PCP Student in an Organized Health Care Education/Training Program; Visit Provider Surgery
DX: R22.1 Localized swelling, mass and lump, neck (principal)
CPT/HCPCS: 88305